=== PATIENT | female | born 1970 | race Caucasian/White ===

== ENCOUNTER 2023-10-26 15:48 | Emergency (ER) | payer BC, OTHER ==
[2023-10-26 15:53] VITALS: BP 128/80; PULSE 72; RESP 18; TEMP 98; BMI 31.0
== END 2023-10-26 18:19 | disposition home or self-care (01) ==
LOC: FER 15:48
DX: R60.0 Localized edema (principal)
CPT/HCPCS: 71275-TC; 93970-TC; 99284-25; Q9967